=== PATIENT | female | born 1990 | race Caucasian/White ===

== ENCOUNTER 2020-06-08 10:02 | Outpatient (REF) | payer OTHER, SELFPAY | END 2020-06-08 10:03 | disposition home or self-care (01) | LOC: HO.LAB 10:02 | PROVIDERS: Visit Provider Internal Medicine | DX: Z20.828 Contact with and (suspected) exposure to other viral communicable diseases (principal) | CPT/HCPCS: C9803; U0003 ==

== ENCOUNTER 2020-06-15 09:44 | Outpatient (REF) | payer OTHER, SELFPAY | END 2020-06-15 09:45 | disposition home or self-care (01) | LOC: HO.LAB 09:44 | PROVIDERS: Visit Provider Internal Medicine | DX: Z20.828 Contact with and (suspected) exposure to other viral communicable diseases (principal) | CPT/HCPCS: C9803; U0003 ==